=== PATIENT | female | born 2000 | race Caucasian/White ===

== ENCOUNTER 2020-06-02 16:44 | Emergency (ER) | payer OTHER ==
[2020-06-02 17:00] VITALS: BP 116/58
--- NOTE | 2020-06-02 18:22 | ER Document Report ---
Entered by DARLENE SALDANA SCRIBE 06/02/20 [id number] Acting as scribe for:VINOD GALINDO MD ED ENT - General Chief Complaint: Sore Throat Stated Complaint: SORE THROAT Time Seen by Provider: 06/02/20 17:55 Mode of Arrival: Ambulatory Information source: Patient Notes: This 20 year old female patient presents to the ED today with complaints of sore throat that started last night. Patient states that when she woke up this morning, the pain was "10 times worse." She also reports "pain near my heart" and a mild cough. Denies known COVID exposure. 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 Past Surgical History: Reports: Hx Cardiac Surgery - Valve repair, Hx Orthopedic Surgery, Hx Umbilical Hernia, Other - Right ear surgery Review of Systems - Review of Systems Constitutional: No symptoms reported EENT: See HPI, Throat pain Cardiovascular: See HPI, Chest pain - reproducible Respiratory: See HPI, Cough Gastrointestinal: No symptoms reported Genitourinary: No symptoms reported Female Genitourinary: No symptoms reported Musculoskeletal: No symptoms reported Skin: No symptoms reported Hematologic/Lymphatic: No symptoms reported Neurological/Psychological: No symptoms reported -: Yes All other systems reviewed and negative Physical Exam - Vital signs Vitals: Temp Pulse Resp BP Pulse Ox 98.6 F 70 18 116/58 L 98 06/02/20 16:58 06/02/20 16:58 06/02/20 16:58 06/02/20 16:58 06/02/20 16:58 - General General appearance: Alert In distress: None - HEENT Head: Normocephalic, Atraumatic Eyes: Normal Extraocular movements intact: Yes Pupils: PERRL Tympanic membrane: Retracted - Left TM is retracted, Other - Right TM appears fagan in color with scarring; appearance which is consistent with patient's history of prior surgery in that ear. Pharynx: Erythema - Posterior pharynx is erythematous. No swelling appreciated.. No: Exudate Neck: Other - Tenderness to palpation over submandibular glands bilaterally. No swelling appreciated. - Respiratory Respiratory status: No respiratory distress Chest status: Nontender Breath sounds: Normal Chest palpation: Normal - Cardiovascular Rhythm: Regular Heart sounds: Normal auscultation Murmur: No - Abdominal Inspection: Normal Distension: No distension Bowel sounds: Normal Tenderness: Nontender - Abdomen soft Organomegaly: No organomegaly - Back Back: Normal, Nontender - Extremities General upper extremity: Normal inspection General lower extremity: Normal inspection. No: Edema - Neurological Neuro grossly intact: Yes Orientation: AAOx4 [place] Coma Scale Eye Opening: Spontaneous [place] Coma Scale Verbal: Oriented [place] Coma Scale Motor: Obeys Commands [place] Coma Scale Total: 15 - Psychological Associated symptoms: Normal affect, Normal mood - Skin Skin Temperature: Warm Skin Moisture: Dry Skin Color: Normal Course - Vital Signs Vital signs: Temp Pulse Resp BP Pulse Ox 98.6 F 70 18 116/58 L 98 06/02/20 16:58 06/02/20 16:58 06/02/20 16:58 06/02/20 16:58 06/02/20 16:58 - Laboratory Results Critical Laboratory Results Reviewed: No Critical Results - Radiology Results Critical Radiology Results Reviewed: No Critical Results Discharge - Discharge Clinical Impression: Chest wall pain Pharyngitis Qualifiers: Pharyngitis/tonsillitis etiology: unspecified etiology Qualified Code(s): J02.9 - Acute pharyngitis, unspecified Condition: Stable Disposition: HOME, SELF-CARE Additional Instructions: Sore Throat Sore throats may be caused by viruses, bacteria, or fungi. Most are due to a virus, and must get better on their own. Bacterial sore throats, particularly those due to "strep," need treatment with antibiotics. If an antibiotic is prescribed, be sure to take the medication for a full 10 days. Failure to take the antibiotic can result in complications such as rheumatic fever. Sometimes, an injection of antibiotics is given instead of pills or liquid. This single "shot" is equal in effectiveness to the oral medication. To relieve symptoms, take acetaminophen for pain. Sip clear liquids frequently, or eat popsicles or ice chips. Anesthetic sprays or lozenges may help. Make sure the air in the room is not too dry. Avoid using decongestants or antihistamines. Call the doctor if there is no improvement in two days, or if you have difficulty breathing, increasing throat pain, high fever, rash, or frequent vomiting. Chest Wall Pain Your chest pain has been diagnosed as coming from the chest wall. This is often caused by straining the muscles or joints in the chest during physical activity, direct trauma, coughing, or vigorous vomiting. Persons with arthritis are especially prone to this type of pain, due to inflammation of the cartilage joints near the breast bone. Occasionally, no cause can be found. Rest from strenuous physical activity. This kind of chest pain is usually made worse by movement of the chest. Depending on the symptoms, we may prescribe medicine for pain, muscle relaxation, and antiinflammatory effects. If the pain is new, and seems to be due to muscle strain, cold packs can help. Otherwise, apply gentle warmth to the painful area for 15 minutes every hour or two. You should contact the doctor immediately if things change. Further evaluation is needed if you develop a fever or cough, if the nature of the pain changes, or if you become short of breath. Your strep test was negative. The appearance of your throat suggested a viral sore throat. You were given a dose of steroids which should help calm down the inflammation and make your throat feel better. You were discharged home with some pain medication to take tonight if needed for sore throat. Take Tylenol and ibuprofen for pain and inflammation. Drink plenty of fluids get plenty of rest. Follow-up with your primary care provider if not improving. RETURN TO THE EMERGENCY ROOM IF ANY NEW OR WORSENING SYMPTOMS. Forms: Return to Work I personally performed the services described in the documentation, reviewed and edited the documentation which was dictated to the scribe in my presence, and it accurately records my words and actions.
[2020-06-02] MEDS ORDERED: HYDROCODONE/ACETAMINOPHEN 5-325 MG (6 TAB/ER DISP) PO PRN (18:47)
[2020-06-02] MEDS ORDERED: DEXAMETHASONE 4 MG TABLET PO ONE (18:47)
== END 2020-06-02 18:56 | disposition home or self-care (01) ==
LOC: ER 16:44
DX: J02.9 Acute pharyngitis, unspecified (principal); R07.89 Other chest pain; R05 Cough
CPT/HCPCS: 99283; 87070; 87880; 87077; J8540